=== PATIENT | male | born 1950 | race American Indian/Alaskan Native ===

== ENCOUNTER 2019-06-16 12:54 | Inpatient (IN) | payer MEDICARE, OTHER ==
[2019-06-16] MEDS ORDERED: dilTIAZem 25 MG/5 ML INJ IV ONE (13:11)
[2019-06-16] MEDS ORDERED: dilTIAZem 25 MG/5 ML INJ ONE (13:13)
[2019-06-16 13:41] LABS: Bilirubin,Urine NEG (Negative); Blood,Urine SM (Negative); Color,Urine Colorless (Yellow); Urobilinogen,Urine < 2.0 mg/dL (<2.0); WBC,Urine < 1.0 /HPF (0.0-6.0)
[2019-06-16] MEDS ORDERED: dilTIAZem/D5W 100 MG/100 ML BAG IV SCH (14:00)
[2019-06-16 14:03] LABS: Basophils % (Auto) 0.3 % (0.0-1.8); Eosinophils # (Auto) 0.1 K/mm3 (0.0-0.4); Eosinophils % (Auto) 1.6 % (0.0-4.3); Hematocrit 43.4 % (35.5-45.6); Hemoglobin 14.7 gm/dl (11.8-15.2); Lymphocytes # (Auto) 1.2 K/mm3 (1.2-5.4); Lymphocytes % (Auto) 18.3 % (13.4-35.0); Mean Corpuscular HGB Conc 34 % (32-34); Mean Corpuscular Volume 92 fl (84-94); Monocytes # (Auto) 0.6 K/mm3 (0.0-0.8); Monocytes % (Auto) 9.5 % (0.0-7.3); Platelet Count 341 K/mm3 (140-440); Red Blood Count 4.73 M/mm3 (3.65-5.03); Red Cell Distribution Width 14.1 % (13.2-15.2)
[2019-06-16 14:12] LABS: INR 0.94 (0.87-1.13); Partial Thromboplastin Time 24.2 Sec. (24.2-36.6)
[2019-06-16 14:19] LABS: Amphetamine Screen,Urine PRESUMPTIVE NEGATIVE; Benzodiazepines Screen,Urine PRESUMPTIVE NEGATIVE; Cannabinoid Screen,Urine PRESUMPTIVE NEGATIVE; Cocaine Screen,Urine PRESUMPTIVE NEGATIVE; Methadone Screen,Urine PRESUMPTIVE NEGATIVE; Opiate Screen,Urine PRESUMPTIVE NEGATIVE
[2019-06-16 14:21] LABS: BUN/Creatinine Ratio 9; Blood Urea Nitrogen 9 mg/dL (9-20); Calcium 9.2 mg/dL (8.4-10.2); Hemolysis Index 20
[2019-06-16 14:26] LABS: Alanine Aminotransferase 29 units/L (7-56); Albumin 4.3 g/dL (3.9-5)
[2019-06-16 14:30] LABS: Bilirubin,Direct < 0.2 mg/dL (0-0.2)
[2019-06-16 14:34] LABS: Free T4 (Free Thyroxine) 1.21 ng/dL (0.76-1.46)
--- NOTE | 2019-06-16 14:34 | XRay Report ---
CHEST 1 VIEW INDICATION / CLINICAL INFORMATION: TAMEKA. COMPARISON: None FINDINGS: SUPPORT DEVICES: None. HEART / MEDIASTINUM: No significant abnormality. LUNGS / PLEURA: No significant pulmonary or pleural abnormality. No pneumothorax. ADDITIONAL FINDINGS: No significant additional findings. IMPRESSION: No acute pulmonary or pleural abnormality. Signer Name: Edison Smith MD FACR Signed: 06/16/2019 2:30 PM Workstation Name: [id number]
--- NOTE | 2019-06-16 15:23 | Emergency Department Report ---
ED Chest Pain HPI - General Chief Complaint: Chest Pain Stated Complaint: CHEST PAIN Time Seen by Provider: 06/16/19 12:56 Source: patient, EMS Mode of arrival: Stretcher Limitations: No Limitations - History of Present Illness Initial Comments: 68-year-old man with the acute onset of a rapid and irregular heart rhythm. The patient states that he does have a history of atrial fibrillation. Apparently it has been paroxysmal. He currently takes aspirin but not anticoagulation. He has a history of PCI. He states that the onset of the rapid heart rhythm he developed anterior nonradiating chest pressure. He did complain of some shortness of breath which was not severe. He denied sweating nausea or vomiting. MD Complaint: chest pain -: Gradual Onset: during rest Pain Location: substernal Severity: moderate Severity scale (0 -10): 0 Quality: heaviness Consistency: constant Improves With: nothing Worsens With: nothing Context: other (atrial fibrillation with RVR) re: dyspnea Other Symptoms: denies: cough, fever, syncope - Related Data Previous Rx's Medication Instructions Recorded Last Taken Type Aspirin EC 325 mg PO QDAY #30 tablet 04/21/14 Unknown Rx Clopidogrel [Plavix] 75 mg PO QDAY #30 tablet 04/21/14 Unknown Rx Lisinopril [Zestril TAB] 20 mg PO QDAY #30 tablet 04/21/14 Unknown Rx Metoprolol [Lopressor TAB] 50 mg PO BID #60 tablet 04/21/14 Unknown Rx Rosuvastatin (Nf) [Crestor] 10 mg PO QHS #30 tablet 04/21/14 Unknown Rx Allergies Allergy/AdvReac Type Severity Reaction Status Date / Time No Known Allergies Allergy Verified 04/16/14 12:26 Heart Score - HEART Score History: Moderately suspicious EKG: Non-specific Age: > 65 Risk factors: > 3 risk factors or hx of atherosclerotic disease Troponin: < normal limit HEART Score: 6 - Critical Actions Critical Actions: 4-6 pts:12-16.6% risk of adverse cardiac event. Should be admitted ED Review of Systems ROS: Stated complaint: CHEST PAIN Other details as noted in HPI Constitutional: denies: chills, fever Eyes: denies: eye pain, eye discharge, vision change ENT: denies: ear pain, throat pain Respiratory: shortness of breath. denies: cough, wheezing Cardiovascular: chest pain, palpitations Endocrine: no symptoms reported Gastrointestinal: denies: abdominal pain, nausea, diarrhea Genitourinary: denies: urgency, dysuria Musculoskeletal: denies: back pain, joint swelling, arthralgia Skin: denies: rash, lesions Neurological: denies: headache, weakness, paresthesias Psychiatric: denies: anxiety, depression Hematological/Lymphatic: denies: easy bleeding, easy bruising ED Past Medical Hx - Past Medical History Hx Hypertension: Yes Hx Congestive Heart Failure: No Hx Diabetes: No Hx Asthma: Yes Hx COPD: No Additional medical history: Atrial Fibrillation - Surgical History Additional Surgical History: cardia stents - Social History Smoking Status: Never Smoker Substance Use Type: Alcohol - Medications Home Medications: Home Medications Medication Instructions Recorded Confirmed Last Taken Type Aspirin EC 325 mg PO QDAY #30 tablet 04/21/14 Unknown Rx Clopidogrel [Plavix] 75 mg PO QDAY #30 tablet 04/21/14 Unknown Rx Lisinopril [Zestril TAB] 20 mg PO QDAY #30 tablet 04/21/14 Unknown Rx Metoprolol [Lopressor TAB] 50 mg PO BID #60 tablet 04/21/14 Unknown Rx Rosuvastatin (Nf) [Crestor] 10 mg PO QHS #30 tablet 04/21/14 Unknown Rx ED Physical Exam - General Limitations: No Limitations General appearance: alert, in no apparent distress - Head Head exam: Present: atraumatic, normocephalic - Eye Eye exam: Present: normal appearance. Absent: scleral icterus - ENT ENT exam: Present: mucous membranes moist - Neck Neck exam: Present: normal inspection - Respiratory Respiratory exam: Present: normal lung sounds bilaterally. Absent: respiratory distress - Cardiovascular Cardiovascular Exam: Present: tachycardia, irregular rhythm. Absent: systolic murmur, diastolic murmur, rubs, gallop - GI/Abdominal GI/Abdominal exam: Present: soft, normal bowel sounds. Absent: distended, tenderness, guarding, rebound - Rectal Rectal exam: Present: deferred - Extremities Exam Extremities exam: Present: normal inspection, normal capillary refill. Absent: pedal edema, joint swelling, calf tenderness - Back Exam Back exam: Present: normal inspection - Neurological Exam Neurological exam: Present: alert, oriented X3, CN II-XII intact. Absent: motor sensory deficit - Psychiatric Psychiatric exam: Present: normal affect, normal mood - Skin Skin exam: Present: warm, dry, intact, normal color. Absent: rash ED Course Vital Signs 06/16/19 06/16/19 06/16/19 13:08 13:11 13:20 Temperature 98.4 F Pulse Rate 168 H 108 H 139 H Respiratory 20 Rate Blood Pressure 135/85 139/85 Blood Pressure [Right] O2 Sat by Pulse 95 Oximetry 06/16/19 06/16/19 06/16/19 13:39 13:43 13:44 Temperature Pulse Rate 92 H 93 H Respiratory 17 14 19 Rate Blood Pressure Blood Pressure 131/78 [Right] O2 Sat by Pulse 95 96 96 Oximetry 06/16/19 06/16/19 06/16/19 13:45 14:00 14:15 Temperature Pulse Rate 97 H 89 84 Respiratory 19 17 16 Rate Blood Pressure 131/78 124/76 121/74 Blood Pressure [Right] O2 Sat by Pulse 96 96 Oximetry 06/16/19 06/16/19 06/16/19 14:30 14:45 15:00 Temperature Pulse Rate 81 84 78 Respiratory 20 18 21 Rate Blood Pressure 121/70 137/77 133/83 Blood Pressure [Right] O2 Sat by Pulse 96 96 95 Oximetry - Reevaluation(s) Reevaluation #1: Patient was given diltiazem 10 mg IV. He spontaneously cardioverted not long thereafter. A diltiazem drip was not assessed. He was referred to the hospital service for further care and management. 06/16/19 15:22 Reevaluation #2: PE EKG after cardioversion shows normal sinus rhythm, evidence of old inferior dizziness. Nonspecific ST-T wave changes 06/16/19 15:24 SHANNA score - Shanna Score Age > 65: (1) Yes Aspirin use within the Past 7 Days: (1) Yes 3 or more CAD Risk Factors: (1) Yes 2 or more Angina events in past 24 hrs: (0) No Known CAD with more than 50% Stenosis: (1) Yes Elevated Cardiac Markers: (0) No ST Deviation Greater than 0.5mm: (0) No SHANNA Score: 4 ED Medical Decision Making - Lab Data Result diagrams: 06/16/19 13:27 06/16/19 13:27 Laboratory Results - last 24 hr 06/16/19 06/16/19 06/16/19 13:26 13:26 13:27 WBC 6.7 RBC 4.73 Hgb 14.7 Hct 43.4 MCV 92 MCH 31 MCHC 34 RDW 14.1 Plt Count 341 Lymph % (Auto) 18.3 [place] % (Auto) 9.5 H Eos % (Auto) 1.6 Baso % (Auto) 0.3 Lymph # 1.2 [place] # 0.6 Eos # 0.1 Baso # 0.0 Seg Neutrophils % 70.3 H Seg Neutrophils # 4.7 PT INR APTT Sodium Potassium Chloride Carbon Dioxide Anion Gap BUN Creatinine Estimated GFR BUN/Creatinine Ratio Glucose Calcium Total Bilirubin Direct Bilirubin AST ALT Alkaline Phosphatase Troponin T NT-Pro-B Natriuret Pep Total Protein Albumin Albumin/Globulin Ratio TSH Free T4 Urine Color Colorless Urine Turbidity Clear Urine pH 7.0 Ur Specific [place] 1.002 L Urine Protein 30 mg/dl Urine Glucose (UA) Neg Urine Ketones Neg Urine Blood Sm Urine Nitrite Neg Urine Bilirubin Neg Urine Urobilinogen < 2.0 Ur Leukocyte Esterase Neg Urine WBC (Auto) < 1.0 Urine RBC (Auto) 2.0 Urine Opiates Screen Presumptive negative Urine Methadone Screen Presumptive negative Ur Barbiturates Screen Presumptive negative Ur Phencyclidine Scrn Presumptive negative Ur Amphetamines Screen Presumptive negative U Benzodiazepines Scrn Presumptive negative Urine Cocaine Screen Presumptive negative U Marijuana (THC) Screen Presumptive negative Drugs of Abuse Note Disclamer 06/16/19 06/16/19 06/16/19 13:27 13:27 13:27 WBC RBC Hgb Hct MCV MCH MCHC RDW Plt Count Lymph % (Auto) [place] % (Auto) Eos % (Auto) Baso % (Auto) Lymph # [place] # Eos # Baso # Seg Neutrophils % Seg Neutrophils # PT 12.7 INR 0.94 APTT 24.2 Sodium 139 Potassium 3.6 Chloride 101.2 Carbon Dioxide 21 L Anion Gap 20 BUN 9 Creatinine 1.0 Estimated GFR > 60 BUN/Creatinine Ratio 9 Glucose 127 H Calcium 9.2 Total Bilirubin 0.30 Direct Bilirubin < 0.2 AST 26 ALT 29 Alkaline Phosphatase 70 Troponin T < 0.010 NT-Pro-B Natriuret Pep 19.20 Total Protein 8.0 Albumin 4.3 Albumin/Globulin Ratio 1.2 TSH Free T4 Urine Color Urine Turbidity Urine pH Ur Specific [place] Urine Protein Urine Glucose (UA) Urine Ketones Urine Blood Urine Nitrite Urine Bilirubin Urine Urobilinogen Ur Leukocyte Esterase Urine WBC (Auto) Urine RBC (Auto) Urine Opiates Screen Urine Methadone Screen Ur Barbiturates Screen Ur Phencyclidine Scrn Ur Amphetamines Screen U Benzodiazepines Scrn Urine Cocaine Screen U Marijuana (THC) Screen Drugs of Abuse Note 06/16/19 13:27 WBC RBC Hgb Hct MCV MCH MCHC RDW Plt Count Lymph % (Auto) [place] % (Auto) Eos % (Auto) Baso % (Auto) Lymph # [place] # Eos # Baso # Seg Neutrophils % Seg Neutrophils # PT INR APTT Sodium Potassium Chloride Carbon Dioxide Anion Gap BUN Creatinine Estimated GFR BUN/Creatinine Ratio Glucose Calcium Total Bilirubin Direct Bilirubin AST ALT Alkaline Phosphatase Troponin T NT-Pro-B Natriuret Pep Total Protein Albumin Albumin/Globulin Ratio TSH 1.300 Free T4 1.21 Urine Color Urine Turbidity Urine pH Ur Specific [place] Urine Protein Urine Glucose (UA) Urine Ketones Urine Blood Urine Nitrite Urine Bilirubin Urine Urobilinogen Ur Leukocyte Esterase Urine WBC (Auto) Urine RBC (Auto) Urine Opiates Screen Urine Methadone Screen Ur Barbiturates Screen Ur Phencyclidine Scrn Ur Amphetamines Screen U Benzodiazepines Scrn Urine Cocaine Screen U Marijuana (THC) Screen Drugs of Abuse Note - EKG Data -: EKG Interpreted by Me Rate: tachycardia (atrial fibrillation with RVR) - Radiology Data Radiology results: image reviewed (chest x-ray no acute process) Critical care attestation.: If time is entered above; I have spent that time in minutes in the direct care of this critically ill patient, excluding procedure time. ED Disposition Clinical Impression: Atrial fibrillation with RVR Chest pain Qualifiers: Chest pain type: unspecified Qualified Code(s): R07.9 - Chest pain, unspecified Disposition: 09 OP ADMIT IP TO THIS HOSP Is pt being admited?: Yes Does the pt Need Aspirin: Yes Condition: Stable Instructions: Chest Pain (ED) Time of Disposition: 15:26
[2019-06-16] MEDS ORDERED: ASPIRIN 325 MG TAB PO ONE (15:28)
--- NOTE | 2019-06-16 15:52 | History and Physical Report ---
History of Present Illness Chief complaint: My heart was pounding in my chest History of present illness: 68 YO Male with Atrial Fib currently taking Aspirin, HTN, HLD, CAD on DAPT S/P PCI, Mild Intermittent Asthma presents to ED for evaluation. Pt states that he experienced a sudden onset of chest palpitations which was followed by chest discomfort approximately 45 minutes prior to presentation to the hospital. EMS notified, and upon arrival the patient was found to be in distress. Pt transported to [facility]. Pt seen and evaluated in ED and found to have Atrial Fib with RVR and initiated on a Cardizem drip with rate control. Pt symptoms resolved with therapy. Pt transitioned to oral cardizem. Pt placed in observat ion status and admitted to [facility] with remote telemetry. Cardiology team consulted in ED. Pt denies fever, chills, CP, NVD, Shortness of Breath, unilateral leg swelling, calf pain, prolonged travel/immobility, hemoptysis, Individual/Family history of DVT/PE/Bleeding/Blood Clotting Disorders. Past History Past Medical History: atrial fib, hypertension, hyperlipidemia Past Surgical History: Other (CArdiac stent) Social history: . denies: smoking, alcohol abuse, prescription drug abuse Family history: hypertension Medications and Allergies Allergies Allergy/AdvReac Type Severity Reaction Status Date / Time No Known Allergies Allergy Verified 04/16/14 12:26 Home Medications Medication Instructions Recorded Confirmed Last Taken Type Aspirin EC 325 mg PO QDAY #30 tablet 04/21/14 Unknown Rx Clopidogrel [Plavix] 75 mg PO QDAY #30 tablet 04/21/14 Unknown Rx Lisinopril [Zestril TAB] 20 mg PO QDAY #30 tablet 04/21/14 Unknown Rx Metoprolol [Lopressor TAB] 50 mg PO BID #60 tablet 04/21/14 Unknown Rx Rosuvastatin (Nf) [Crestor] 10 mg PO QHS #30 tablet 04/21/14 Unknown Rx Active Meds: Active Medications Diltiazem HCl (Cardizem/D5w 100mg/100ml) 100 mg in 100 mls @ 5 mls/hr IV TITR DIANE; Protocol Review of Systems Constitutional: no weight loss, no weight gain, no fever, no chills Ears, nose, mouth and throat: no ear pain, no ear discharge, no tinnitis, no decreased hearing, no nose pain Cardiovascular: palpitations Respiratory: no cough, no cough with sputum, no excessive sputum, no hemoptysis, no shortness of breath Gastrointestinal: no nausea, no vomiting, no diarrhea, no constipation, no change in bowel habits Genitourinary Male: no hematuria, no flank pain, no discharge, no urinary frequency, no urinary hesitancy Rectal: no pain, no incontinence, no bleeding Musculoskeletal: no neck pain, no arm numbness/tingling, no low back pain, no shooting leg pain, no leg numbness/tingling Integumentary: no rash, no pruritis, no redness, no sores, no jaundice Neurological: no transient paralysis, no paralysis, no parathesias, no numbness, no tingling, no syncope, no tremors Psychiatric: no anxiety, no memory loss, no change in sleep habits, no sleep disturbances, no insomnia, no suicidal ideation Endocrine: no cold intolerance, no heat intolerance, no polyphagia, no excessive thirst, no polyuria, no weight change Hematologic/Lymphatic: no easy bruising, no easy bleeding, no lymphadenopathy Allergic/Immunologic: no urticaria, no allergic rhinitis, no persistent infections, no anaphylaxis, no angioedema Exam - Constitutional Vitals: Temp Pulse Resp BP Pulse Ox 98.4 F 72 15 135/80 95 06/16/19 13:08 06/16/19 15:30 06/16/19 15:30 06/16/19 15:30 06/16/19 15:30 General appearance: Present: mild distress - EENT Eyes: Present: PERRL ENT: hearing intact, clear oral mucosa - Neck Neck: Present: supple, normal ROM - Respiratory Respiratory effort: normal Respiratory: bilateral: CTA - Cardiovascular Heart Sounds: Present: S1 & S2. Absent: rub, click - Extremities Extremities: pulses symmetrical, No edema Peripheral Pulses: within normal limits - Abdominal General gastrointestinal: Present: soft, non-tender, non-distended, normal bowel sounds Male genitourinary: Present: normal - Integumentary Integumentary: Present: clear, warm, dry - Musculoskeletal Musculoskeletal: gait normal, strength equal bilaterally - Psychiatric Psychiatric: appropriate mood/affect, intact judgment & insight - Neurologic Neurologic: CNII-XII intact, moves all extremities Results - Labs CBC & Chem 7: 06/16/19 13:27 06/16/19 13:27 Labs: Abnormal lab results 06/16/19 06/16/19 06/16/19 Range/Units 13:26 13:27 13:27 [place] % (Auto) 9.5 H (0.0-7.3) % Seg Neutrophils % 70.3 H (40.0-70.0) % Carbon Dioxide 21 L (22-30) mmol/L Glucose 127 H (75-100) mg/dL Ur Specific [place] 1.002 L (1.003-1.030) Assessment and Plan - Patient Problems (1) Atrial fibrillation with RVR Current Visit: No Status: Acute Plan to address problem: IV cardizem, PO Cardizem, thyroid panel, remote telemetry. (2) HTN (hypertension) Current Visit: Yes Status: Acute Qualifiers: Hypertension type: essential hypertension Qualified Code(s): I10 - Essential (primary) hypertension Plan to address problem: monitor bp q shift, (3) CAD (coronary artery disease) Current Visit: Yes Status: Acute Qualifiers: Associated angina: without angina Plan to address problem: lipid panel, statin therapy, low fat/low cholesterol diet, DAPT (4) HLD (hyperlipidemia) Current Visit: Yes Status: Acute Qualifiers: Hyperlipidemia type: unspecified Qualified Code(s): E78.5 - Hyperlipidemia, unspecified Plan to address problem: Statin therapy, supportive care. (5) DVT prophylaxis Current Visit: Yes Status: Acute Plan to address problem: SCD to BLE while in bed,
[2019-06-16] MEDS ORDERED: ACETAMINOPHEN 325 MG TAB PO PRN (15:53)
[2019-06-16] MEDS ORDERED: ONDANSETRON 4 MG/2 ML INJ IV PRN (15:53)
[2019-06-16] MEDS ORDERED: ALBUTEROL 2.5 MG/3 ML NEBU IH PRN (15:53)
[2019-06-16] MEDS: dilTIAZem 30 MG TAB PO SCH (19:43)
[2019-06-16] MEDS: METOPROLOL TARTRATE 50 MG TAB PO SCH (21:20)
[2019-06-16] MEDS ORDERED: ROSUVASTATIN 10 MG PO SCH (22:00)
[2019-06-17] MEDS: dilTIAZem 30 MG TAB PO SCH ×3 (00:14→13:18)
[2019-06-17 05:48] LABS: BUN/Creatinine Ratio 9; Blood Urea Nitrogen 9 mg/dL (9-20)
[2019-06-17 05:49] LABS: Calcium 8.9 mg/dL (8.4-10.2); Hemolysis Index 18
[2019-06-17] MEDS ORDERED: CLOPIDOGREL 75 MG TAB PO SCH (10:00)
[2019-06-17] MEDS ORDERED: ASPIRIN EC 325 MG TAB PO SCH (10:00)
[2019-06-17] MEDS: METOPROLOL TARTRATE 50 MG TAB PO SCH (10:15)
[2019-06-17] MEDS: LISINOPRIL 20 MG TAB PO SCH (10:15)
--- NOTE | 2019-06-17 13:33 | Consultation ---
History of Present Illness Consult date: 06/17/19 Consult reason: atrial fibrillation History of present illness: This is a 68 year old male who presented with palpitations, found to be in rapid atrial fibrillation. He was treated with intravenous Diltiazem in the emergency department and he has since reverted to a stable sinus rhythm. TSH is normal. A cardiac consultation has been requested for further management of paroxysmal atrial fibrillation. Patient gives a history of paroxysmal [facility] He is not on oral anticoagulation for unclear reasons. 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 Ejection fraction 70%. At that time, the patient was recommended DAPT with plavix and aspirin which he continues to take. Past History Past Medical History: acute NE, atrial fib, CAD, hypertension, hyperlipidemia Social history: . denies: smoking, alcohol abuse, prescription drug abuse Family history: hypertension Medications and Allergies Allergies Allergy/AdvReac Type Severity Reaction Status Date / Time No Known Allergies Allergy Verified 04/16/14 12:26 Home Medications Medication Instructions Recorded Confirmed Last Taken Type Aspirin EC 325 mg PO QDAY #30 tablet 04/21/14 06/16/19 Unknown Rx Clopidogrel [Plavix] 75 mg PO QDAY #30 tablet 04/21/14 06/16/19 Unknown Rx Lisinopril [Zestril TAB] 20 mg PO QDAY #30 tablet 04/21/14 06/16/19 Unknown Rx Metoprolol [Lopressor TAB] 50 mg PO BID #60 tablet 04/21/14 06/16/19 Unknown Rx Rosuvastatin (Nf) [Crestor] 10 mg PO QHS #30 tablet 04/21/14 06/16/19 Unknown Rx Augmentin 875-125 Tablet 1 tab PO Q12H 06/17/19 06/17/19 06/16/19 History Active Meds: Active Medications Acetaminophen (Tylenol) 650 mg PO Q4H PRN PRN Reason: Pain MILD(1-3)/Fever >100.5/RUIZ Albuterol (Proventil) 2.5 mg IH Q4HRT PRN PRN Reason: Shortness Of Breath Aspirin (Ecotrin) 325 mg PO QDAY [facility] Last Admin: 06/17/19 10:16 Dose: 325 mg Documented by: Atorvastatin Calcium (Lipitor) 20 mg PO QHS [facility] Last Admin: 06/16/19 21:21 Dose: 20 mg Documented by: Clopidogrel Bisulfate (Plavix) 75 mg PO QDAY [facility] Last Admin: 06/17/19 10:16 Dose: 75 mg Documented by: Diltiazem HCl (Cardizem) 30 mg PO Q6HR [facility] Last Admin: 06/17/19 13:18 Dose: 30 mg Documented by: Lisinopril (Zestril) 20 mg PO QDAY [facility] Last Admin: 06/17/19 10:15 Dose: 20 mg Documented by: Metoprolol Tartrate (Metoprolol) 50 mg PO BID [facility] Last Admin: 06/17/19 10:15 Dose: 50 mg Documented by: Ondansetron HCl (Zofran) 4 mg IV Q8H PRN PRN Reason: Nausea And Vomiting Sodium Chloride (Sodium Chloride Flush Syringe 10 Ml) 10 ml IV BID [facility] Last Admin: 06/17/19 10:23 Dose: 10 ml Documented by: Sodium Chloride (Sodium Chloride Flush Syringe 10 Ml) 10 ml IV PRN PRN PRN Reason: LINE FLUSH Physical Examination Vital Signs Temp Pulse Resp BP Pulse Ox 98.4 F 168 H 20 135/85 95 06/16/19 13:08 06/16/19 13:08 06/16/19 13:08 06/16/19 13:08 06/16/19 13:08 General appearance: no acute distress HEENT: Positive: PERRL Neck: Positive: trachea midline Cardiac: Positive: Reg Rate and Rhythm Lungs: Positive: Decreased Breath Sounds Neuro: Positive: Grossly Intact Results 06/16/19 13:27 06/17/19 04:43 Cardiac Enzymes 06/16/19 Range/Units 13:27 AST 26 (5-40) units/L Coagulation 06/16/19 Range/Units 13:27 PT 12.7 (12.2-14.9) Sec. INR 0.94 (0.87-1.13) APTT 24.2 (24.2-36.6) Sec. CBC 06/16/19 Range/Units 13:27 WBC 6.7 (4.5-11.0) K/mm3 RBC 4.73 (3.65-5.03) M/mm3 Hgb 14.7 (11.8-15.2) gm/dl Hct 43.4 (35.5-45.6) % Plt Count 341 (140-440) K/mm3 Lymph # 1.2 (1.2-5.4) K/mm3 [place] # 0.6 (0.0-0.8) K/mm3 Eos # 0.1 (0.0-0.4) K/mm3 Baso # 0.0 (0.0-0.1) K/mm3 Comprehensive Metabolic Panel 06/16/19 06/16/19 06/17/19 Range/Units 13:27 13:27 04:43 Sodium 139 138 (137-145) mmol/L Potassium 3.6 3.7 (3.6-5.0) mmol/L Chloride 101.2 101.3 (98-107) mmol/L Carbon Dioxide 21 L 22 (22-30) mmol/L BUN 9 9 (9-20) mg/dL Creatinine 1.0 1.0 (0.8-1.5) mg/dL Glucose 127 H 109 H (75-100) mg/dL Calcium 9.2 8.9 (8.4-10.2) mg/dL Direct Bilirubin < 0.2 (0-0.2) mg/dL AST 26 (5-40) units/L ALT 29 (7-56) units/L Alkaline Phosphatase 70 (35-129) units/L Total Protein 8.0 (6.3-8.2) g/dL Albumin 4.3 (3.9-5) g/dL Assessment and Plan Paroxysmal atrial fibrillation on diltiazem for suppression Hx of NE/CAD Hypertension Oral anticoagulation therapy for atrial fibrillation prophylaxis. Echocardiogram for LVEF assessment. Continue medical management for coronary artery disease.
--- NOTE | 2019-06-17 15:01 | Progress Note ---
Assessment and Plan Assessment and plan: Atrial fibrillation with RVR On Cardizem, Eliquis Cardiology following remote telemetry. Hypertension monitor bp q shift, Coronary artery disease Lipid panel, statin therapy, low fat/low cholesterol diet, DAPT Hyperlipidemia Statin therapy, supportive care. DVT prophylaxis SCD to BLE while in bed, History Interval history: Patient presented with palpitations, diagnoses with rapid afib No more palpitations Hospitalist Physical - Physical exam Narrative exam: Gen: Not in acute distress, lying in bed, HEENT: Normocephalic, atraumatic Neck: supple, no JVD Heart: S1 and S2 irreg, no murmurs, rubs or gallop Lungs: clear to auscultation bilaterally, no crackles Abd: soft, NT, non distended, normal BS Ext: No edema, no clubbing, no cyanosis Neuro:Awake,alert, oriented X 3, moves all ext - Constitutional Vitals: Temp Pulse Resp BP Pulse Ox 98.2 F 65 18 130/73 100 06/17/19 13:20 06/17/19 13:16 06/17/19 13:20 06/17/19 13:18 06/17/19 13:16 General appearance: Present: no acute distress Results - Labs CBC & Chem 7: 06/16/19 13:27 06/17/19 04:43 Labs: Laboratory Last Values WBC 6.7 K/mm3 (4.5-11.0) 06/16/19 13:27 RBC 4.73 M/mm3 (3.65-5.03) 06/16/19 13:27 Hgb 14.7 gm/dl (11.8-15.2) 06/16/19 13:27 Hct 43.4 % (35.5-45.6) 06/16/19 13:27 MCV 92 fl (84-94) 06/16/19 13:27 MCH 31 pg (28-32) 06/16/19 13:27 MCHC 34 % (32-34) 06/16/19 13:27 RDW 14.1 % (13.2-15.2) 06/16/19 13:27 Plt Count 341 K/mm3 (140-440) 06/16/19 13:27 Lymph % (Auto) 18.3 % (13.4-35.0) 06/16/19 13:27 [place] % (Auto) 9.5 % (0.0-7.3) H 06/16/19 13:27 Eos % (Auto) 1.6 % (0.0-4.3) 06/16/19 13:27 Baso % (Auto) 0.3 % (0.0-1.8) 06/16/19 13:27 Lymph # 1.2 K/mm3 (1.2-5.4) 06/16/19 13:27 [place] # 0.6 K/mm3 (0.0-0.8) 06/16/19 13:27 Eos # 0.1 K/mm3 (0.0-0.4) 06/16/19 13:27 Baso # 0.0 K/mm3 (0.0-0.1) 06/16/19 13:27 Seg Neutrophils % 70.3 % (40.0-70.0) H 06/16/19 13:27 Seg Neutrophils # 4.7 K/mm3 (1.8-7.7) 06/16/19 13:27 PT 12.7 Sec. (12.2-14.9) 06/16/19 13:27 INR 0.94 (0.87-1.13) 06/16/19 13:27 APTT 24.2 Sec. (24.2-36.6) 06/16/19 13:27 Sodium 138 mmol/L (137-145) 06/17/19 04:43 Potassium 3.7 mmol/L (3.6-5.0) 06/17/19 04:43 Chloride 101.3 mmol/L (98-107) 06/17/19 04:43 Carbon Dioxide 22 mmol/L (22-30) 06/17/19 04:43 Anion Gap 18 mmol/L 06/17/19 04:43 BUN 9 mg/dL (9-20) 06/17/19 04:43 Creatinine 1.0 mg/dL (0.8-1.5) 06/17/19 04:43 Estimated GFR > 60 ml/min 06/17/19 04:43 BUN/Creatinine Ratio 9 % 06/17/19 04:43 Glucose 109 mg/dL (75-100) H 06/17/19 04:43 Calcium 8.9 mg/dL (8.4-10.2) 06/17/19 04:43 Total Bilirubin 0.30 mg/dL (0.1-1.2) 06/16/19 13:27 Direct Bilirubin < 0.2 mg/dL (0-0.2) 06/16/19 13:27 AST 26 units/L (5-40) 06/16/19 13:27 ALT 29 units/L (7-56) 06/16/19 13:27 Alkaline Phosphatase 70 units/L (35-129) 06/16/19 13:27 Troponin T < 0.010 ng/mL (0.00-0.029) 06/16/19 21:43 NT-Pro-B Natriuret Pep 19.20 pg/mL (0-900) 06/16/19 13:27 Total Protein 8.0 g/dL (6.3-8.2) 06/16/19 13:27 Albumin 4.3 g/dL (3.9-5) 06/16/19 13:27 Albumin/Globulin Ratio 1.2 % 06/16/19 13:27 TSH 1.300 mlU/mL (0.270-4.200) 06/16/19 13:27 Free T4 1.21 ng/dL (0.76-1.46) 06/16/19 13:27 Urine Color Colorless (Yellow) 06/16/19 13:26 Urine Turbidity Clear (Clear) 06/16/19 13:26 Urine pH 7.0 (5.0-7.0) 06/16/19 13:26 Ur Specific [place] 1.002 (1.003-1.030) L 06/16/19 13:26 Urine Protein 30 mg/dl mg/dL (Negative) 06/16/19 13:26 Urine Glucose (UA) Neg mg/dL (Negative) 06/16/19 13:26 Urine Ketones Neg mg/dL (Negative) 06/16/19 13:26 Urine Blood Sm (Negative) 06/16/19 13:26 Urine Nitrite Neg (Negative) 06/16/19 13:26 Urine Bilirubin Neg (Negative) 06/16/19 13:26 Urine Urobilinogen < 2.0 mg/dL (<2.0) 06/16/19 13:26 Ur Leukocyte Esterase Neg (Negative) 06/16/19 13:26 Urine WBC (Auto) < 1.0 /HPF (0.0-6.0) 06/16/19 13:26 Urine RBC (Auto) 2.0 /HPF (0.0-6.0) 06/16/19 13:26 Urine Opiates Screen Presumptive negative 06/16/19 13:26 Urine Methadone Screen Presumptive negative 06/16/19 13:26 Ur Barbiturates Screen Presumptive negative 06/16/19 13:26 Ur Phencyclidine Scrn Presumptive negative 06/16/19 13:26 Ur Amphetamines Screen Presumptive negative 06/16/19 13:26 U Benzodiazepines Scrn Presumptive negative 06/16/19 13:26 Urine Cocaine Screen Presumptive negative 06/16/19 13:26 U Marijuana (THC) Screen Presumptive negative 06/16/19 13:26 Drugs of Abuse Note Disclamer 06/16/19 13:26 Active Medications - Current Medications Current Medications: Generic Name Dose Route Start Last Admin Trade Name Freq PRN Reason Stop Dose Admin Acetaminophen 650 mg 06/16/19 15:53 Tylenol PO Q4H PRN Pain MILD(1-3)/Fever >100.5/RUIZ Albuterol 2.5 mg 06/16/19 15:53 Proventil IH Q4HRT PRN Shortness Of Breath Apixaban 5 mg 06/17/19 22:00 Eliquis PO Q12HR [facility] Protocol Aspirin 81 mg 06/18/19 10:00 Aspirin PO QDAY [facility] Atorvastatin Calcium 20 mg 06/16/19 22:00 06/16/19 21:21 Lipitor PO 20 mg QHS DIANE Administration Diltiazem HCl 180 mg 06/18/19 10:00 Cardizem Cd PO QDAY [facility] Lisinopril 20 mg 06/17/19 10:00 06/17/19 10:15 Zestril PO 20 mg QDAY DIANE Administration Metoprolol Tartrate 25 mg 06/17/19 22:00 Metoprolol PO BID [facility] Ondansetron HCl 4 mg 06/16/19 15:53 Zofran IV Q8H PRN Nausea And Vomiting Sodium Chloride 10 ml 06/16/19 22:00 06/17/19 10:23 Sodium Chloride Flush Syringe 10 Ml IV 10 ml BID DIANE Administration Sodium Chloride 10 ml 06/16/19 15:53 Sodium Chloride Flush Syringe 10 Ml IV PRN PRN LINE FLUSH
[2019-06-17] MEDS: METOPROLOL TARTRATE 25 MG TAB PO SCH (21:46)
[2019-06-17] MEDS: APIXABAN 5 MG TAB PO SCH (21:47)
[2019-06-18] MEDS ORDERED: REGADENOSON 0.4 MG/5 ML INJ IV ONE (07:33)
[2019-06-18] MEDS ORDERED: ASPIRIN 325 MG TAB PO SCH (10:00)
[2019-06-18] MEDS ORDERED: dilTIAZem CD 180 MG CAP PO SCH (10:00)
--- NOTE | 2019-06-18 11:13 | Progress Note ---
Assessment and Plan Paroxysmal atrial fibrillation on diltiazem for suppression Hx of ND/CAD s/p PCI Hypertension Rate control strategy with AV mayela tyrone for atrial fibrillation Oral anticoagulation with eliquis therapy for atrial fibrillation prophylaxis Echocardiogram shows normal LV function with EF 50-55% Continue medical management for coronary artery disease Plan for stress test today Subjective Date of service: 06/18/19 Interval history: No acute events. Resting comfortably. No chest pain or SOB. Objective Vital Signs Temp Pulse Resp Resp BP Pulse Ox 06/18/19 07:30 98.0 F 72 20 126/75 98 06/18/19 06:07 59 L 06/18/19 04:00 20 06/18/19 02:08 98.3 F 66 18 126/82 99 06/18/19 01:01 68 16 96 06/17/19 22:00 98 06/17/19 21:46 70 136/69 06/17/19 19:21 97.8 F 70 18 136/69 97 06/17/19 13:20 98.2 F 18 06/17/19 13:18 130/73 06/17/19 13:16 65 130/73 100 - Physical Examination HEENT: Positive: PERRL Neck: Positive: trachea midline Neuro: Positive: Grossly Intact
[2019-06-18 14:29] VITALS: BP 114/62
[2019-06-18] MEDS: APIXABAN 5 MG TAB PO SCH (14:31)
[2019-06-18] MEDS: METOPROLOL TARTRATE 25 MG TAB PO SCH (14:40)
[2019-06-18] MEDS: LISINOPRIL 20 MG TAB PO SCH (14:40)
--- NOTE | 2019-06-18 15:23 | Discharge Summary ---
Providers - Providers Date of Admission: 06/18/19 08:12 Date of discharge: 06/18/19 Attending physician: ISABELLA WOLFE 06/16/19 18:58 Consult to Physician [CONS] Routine Comment: Consulting Provider: DWAIN ALVARADO Physician Instructions: Reason For Exam: atrial fib Primary care physician: PEAR PICKER Hospitalization Condition: Fair Hospital course: 68 YO Male with Atrial Fib currently taking Aspirin, HTN, HLD, CAD on DAPT S/P PCI, Mild Intermittent Asthma presented to ED for evaluation. Pt states that he experienced a sudden onset of palpitations which was followed by chest discomfort approximately 45 minutes prior to presentation to the hospital. EMS notified, and upon arrival the patient was found to be in distress. He was seen and evaluated in ED and found to have Atrial Fib with RVR and initiated on a Cardizem drip with rate control. Pt symptoms resolved with therapy. Pt transitioned to oral cardizem. Pt placed in observation status. Patient was evaluated by Structural Rigger. Stress test was done which was unremarkable. He was then disharged home. Total time spent on discharge, 33 mins Disposition: DC-01 TO HOME OR SELFCARE - Discharge Diagnoses (1) Atrial fibrillation with RVR Status: Acute (2) CAD (coronary artery disease) Status: Acute Qualifiers: Associated angina: without angina (3) HLD (hyperlipidemia) Status: Acute Qualifiers: Hyperlipidemia type: unspecified Qualified Code(s): E78.5 - Hyperlipidemia, unspecified (4) HTN (hypertension) Status: Acute Qualifiers: Hypertension type: essential hypertension Qualified Code(s): I10 - Essential (primary) hypertension Core Measure Documentation - Palliative Care Palliative Care/ Comfort Measures: Not Applicable - Core Measures Any of the following diagnoses?: none Exam - Constitutional Vitals: Temp Pulse Resp BP Pulse Ox 98.0 F 80 18 114/62 97 06/18/19 13:08 06/18/19 14:31 06/18/19 13:08 06/18/19 14:31 06/18/19 13:08 Plan Activity: no restrictions Diet: low fat, low cholesterol, low salt Plan of Treatment: 1.Follow up with PCP in 1 week. 2.Follow up with Dr. Alvarado, cardiology in 1 week Follow up with: PRIMARY CAREMD [Primary Care Provider] - 7 Days Prescriptions: dilTIAZem CD [Cardizem CD] 180 mg PO QDAY #30 capsule Apixaban [Eliquis] 5 mg PO Q12HR #60 tablet Aspirin EC [Halfprin EC] 81 mg PO QDAY #30 tablet. Metoprolol [Lopressor TAB] 25 mg PO BID #30 tablet Famotidine [Pepcid] 20 mg PO BID #60 tablet
== END 2019-06-18 19:05 | disposition home or self-care (01) | DRG 310 ==
LOC: ED 12:54 → 2B-ACE 15:53 → OBSVTOIN 06-18 08:12
PROVIDERS: ADMIT Internal Medicine; ATTEND Internal Medicine
PROC: 5A09357 Assistance with Respiratory Ventilation, Less than 24 Consecutive Hours, Continuous Positive Airway Pressure (ICD-10-PCS; principal; 2019-06-17)
PROC: 5A09357 Assistance with Respiratory Ventilation, Less than 24 Consecutive Hours, Continuous Positive Airway Pressure (ICD-10-PCS; 2019-06-18)
DX: I48.0 Paroxysmal atrial fibrillation (principal); I10 Essential (primary) hypertension; J45.909 Unspecified asthma, uncomplicated; E78.5 Hyperlipidemia, unspecified; I25.10 Atherosclerotic heart disease of native coronary artery without angina pectoris; Z82.49 Family history of ischemic heart disease and other diseases of the circulatory system; Z79.82 Long term (current) use of aspirin; I25.2 Old myocardial infarction; Z79.01 Long term (current) use of anticoagulants; Z79.899 Other long term (current) drug therapy; Z95.5 Presence of coronary angioplasty implant and graft
CPT/HCPCS: 36415; 71045; 78452; 80048; 80076; 80307; 81001; 83880; 84439; 84443; 84484; 85025; 85610; 85730; 93005; 93010; 93017; 93306; 94660; G0378; A9270-GY; A9502; J2785

== ENCOUNTER 2019-08-11 18:39 | Emergency (ER) | payer MEDICARE ==
--- NOTE | 2019-08-11 21:49 | Emergency Department Report ---
ED Palpitations HPI - General Chief Complaint: Arrhythmia/Palpitations Stated Complaint: FAST HEART RATE/HBP Time Seen by Provider: 08/11/19 20:52 Source: patient, EMS Mode of arrival: Ambulatory Limitations: No Limitations - History of Present Illness Initial Comments: 69-year-old male with history of A. fib presents to ED with palpitations. Patient states he had just finished eating and sat down at the computer when he began to sense that his heart was racing. Patient reports associated mild shortness of breath while he is experiencing the palpitations. Patient states he checked his heart rate and it was in the 170s at that time. He reports he is compliant with his Cardizem. Patient is currently not experiencing any palpitations, chest pain or shortness of breath. MD Complaint: "heart racing" -: This evening Context: occured during rest Arrythmia History: atrial fibrillation Associated Symptoms: shortness of breath - Related Data Previous Rx's Medication Instructions Recorded Last Taken Type Rosuvastatin (Nf) [Crestor] 10 mg PO QHS #30 tablet 04/21/14 Unknown Rx lisinopriL [Zestril TAB] 20 mg PO QDAY #30 tablet 04/21/14 Unknown Rx Apixaban [Eliquis] 5 mg PO Q12HR #60 tablet 06/18/19 Unknown Rx Aspirin EC [Halfprin EC] 81 mg PO QDAY #30 tablet. 06/18/19 Unknown Rx Famotidine [Pepcid] 20 mg PO BID #60 tablet 06/18/19 Unknown Rx Metoprolol [Lopressor TAB] 25 mg PO BID #30 tablet 06/18/19 Unknown Rx dilTIAZem CD [Cardizem CD] 180 mg PO QDAY #30 capsule 06/18/19 Unknown Rx Allergies Allergy/AdvReac Type Severity Reaction Status Date / Time No Known Allergies Allergy Verified 04/16/14 12:26 ED Review of Systems ROS: Stated complaint: FAST HEART RATE/HBP Other details as noted in HPI Comment: All other systems reviewed and negative Constitutional: denies: chills, fever Respiratory: shortness of breath. denies: cough Cardiovascular: palpitations. denies: chest pain Gastrointestinal: denies: nausea, vomiting ED Past Medical Hx - Past Medical History Hx Hypertension: Yes Hx Heart Attack/AMI: Yes Hx Congestive Heart Failure: No Hx Diabetes: No Hx Deep Vein Thrombosis: Yes Hx Asthma: Yes Hx COPD: No Additional medical history: Atrial Fibrillation - Surgical History Hx Coronary Stent: Yes Additional Surgical History: cardia stents - Social History Smoking Status: Never Smoker Substance Use Type: Alcohol, Marijuana - Medications Home Medications: Home Medications Medication Instructions Recorded Confirmed Last Taken Type Rosuvastatin (Nf) [Crestor] 10 mg PO QHS #30 tablet 04/21/14 06/16/19 Unknown Rx lisinopriL [Zestril TAB] 20 mg PO QDAY #30 tablet 04/21/14 06/16/19 Unknown Rx Apixaban [Eliquis] 5 mg PO Q12HR #60 tablet 06/18/19 Unknown Rx Aspirin EC [Halfprin EC] 81 mg PO QDAY #30 tablet.dr 06/18/19 Unknown Rx Famotidine [Pepcid] 20 mg PO BID #60 tablet 06/18/19 Unknown Rx Metoprolol [Lopressor TAB] 25 mg PO BID #30 tablet 06/18/19 Unknown Rx dilTIAZem CD [Cardizem CD] 180 mg PO QDAY #30 capsule 06/18/19 Unknown Rx ED Physical Exam - General Limitations: No Limitations General appearance: alert, in no apparent distress - Head Head exam: Present: atraumatic, normocephalic - Eye Eye exam: Present: normal appearance, EOMI - ENT ENT exam: Present: mucous membranes moist - Neck Neck exam: Present: normal inspection - Respiratory Respiratory exam: Present: normal lung sounds bilaterally. Absent: respiratory distress - Cardiovascular Cardiovascular Exam: Present: regular rate, normal rhythm - GI/Abdominal GI/Abdominal exam: Present: soft. Absent: distended, tenderness - Extremities Exam Extremities exam: Present: normal inspection - Neurological Exam Neurological exam: Present: alert, oriented X3 - Psychiatric Psychiatric exam: Present: normal affect, normal mood - Skin Skin exam: Present: warm, dry, intact, normal color ED Course Vital Signs 08/11/19 08/11/19 08/11/19 20:37 20:40 20:44 Temperature 98.3 F Pulse Rate 66 67 67 Respiratory 17 20 18 Rate Blood Pressure 160/90 O2 Sat by Pulse 97 96 99 Oximetry 08/11/19 08/11/19 08/11/19 21:00 21:01 22:12 Temperature Pulse Rate 62 70 Respiratory 21 Rate Blood Pressure 160/90 149/80 160/90 O2 Sat by Pulse Oximetry 08/11/19 23:00 Temperature Pulse Rate 65 Respiratory 14 Rate Blood Pressure 141/83 O2 Sat by Pulse 96 Oximetry ED Medical Decision Making - Lab Data Result diagrams: 08/11/19 21:59 08/11/19 21:59 - EKG Data EKG shows normal: axis, QRS complexes, ST-T waves Rate: normal - EKG Data Interpretation: no acute changes, other (Afib) - Radiology Data Radiology results: report reviewed, image reviewed - Medical Decision Making - hx afib, tachycardic at home into the 170s per pt - rate normal here in ED, no episodes of RVR - labs unremarkable, including troponin - EKG shows no ischemic changes - remainder of vitals are normal - will d/c home - advised outpt f/u w/ operational assistant, Dr Alvarado - return precautions given - Differential Diagnosis ACS, CHF, electrolyte abnormality Critical care attestation.: If time is entered above; I have spent that time in minutes in the direct care of this critically ill patient, excluding procedure time. ED Disposition Clinical Impression: Atrial fibrillation, Palpitations Disposition: DC-01 TO HOME OR SELFCARE Is pt being admited?: No Condition: Stable Instructions: Palpitations (ED) Referrals: DWAIN ALVARADO MD [Staff Physician] - 3-5 Days Time of Disposition: 23:08
[2019-08-11 22:19] LABS: Basophils % (Auto) 0.2 % (0.0-1.8); Eosinophils # (Auto) 0.2 K/mm3 (0.0-0.4); Eosinophils % (Auto) 2.4 % (0.0-4.3); Hematocrit 43.4 % (35.5-45.6); Hemoglobin 14.6 gm/dl (11.8-15.2); Lymphocytes # (Auto) 1.9 K/mm3 (1.2-5.4); Lymphocytes % (Auto) 26.4 % (13.4-35.0); Mean Corpuscular HGB Conc 34 % (32-34); Mean Corpuscular Volume 93 fl (84-94); Monocytes # (Auto) 0.7 K/mm3 (0.0-0.8); Monocytes % (Auto) 9.8 % (0.0-7.3); Platelet Count 331 K/mm3 (140-440); Red Blood Count 4.66 M/mm3 (3.65-5.03); Red Cell Distribution Width 14.2 % (13.2-15.2)
--- NOTE | 2019-08-11 22:26 | XRay Report ---
CHEST 1 VIEW INDICATION / CLINICAL INFORMATION: palpitations. COMPARISON: 08/17/2018 FINDINGS: SUPPORT DEVICES: None. HEART / MEDIASTINUM: No significant abnormality. LUNGS / PLEURA: No significant pulmonary or pleural abnormality.. No pneumothorax. ADDITIONAL FINDINGS: No significant additional findings. IMPRESSION: 1. No acute findings. Signer Name: Alejandro Zavala MD Signed: 08/11/2019 10:22 PM Workstation Name: [id number]
[2019-08-11 22:29] LABS: INR 1.02 (0.87-1.13)
[2019-08-11 22:30] LABS: Partial Thromboplastin Time 27.8 Sec. (24.2-36.6)
[2019-08-11 22:42] LABS: BUN/Creatinine Ratio 10; Blood Urea Nitrogen 10 mg/dL (9-20); Calcium 9.6 mg/dL (8.4-10.2); Hemolysis Index 20
[2019-08-12 00:50] VITALS: BP 141/83
== END 2019-08-12 00:28 | disposition home or self-care (01) ==
LOC: ED 18:39
DX: I48.91 Unspecified atrial fibrillation (principal); R00.2 Palpitations; I10 Essential (primary) hypertension; J45.909 Unspecified asthma, uncomplicated; F12.10 Cannabis abuse, uncomplicated; Z79.899 Other long term (current) drug therapy; Z98.890 Other specified postprocedural states; Z86.718 Personal history of other venous thrombosis and embolism
CPT/HCPCS: 36415; 71045; 80048; 84484; 85025; 85610; 85730; 93005; 93010

== ENCOUNTER 2019-08-26 17:56 | Emergency (ER) | payer SELFPAY ==
[2019-08-26 18:05] VITALS: BP 174/80
== END 2019-08-26 20:05 | disposition left against medical advice (07) ==
LOC: ED 17:56
DX: R07.89 Other chest pain (principal); Z53.21 Procedure and treatment not carried out due to patient leaving prior to being seen by health care provider
CPT/HCPCS: 93005; 93010

== ENCOUNTER 2020-05-19 08:07 | Emergency (ER) | payer MEDICARE, OTHER ==
[2020-05-19] MEDS ORDERED: ASPIRIN 325 MG TAB PO ONE (08:11)
--- NOTE | 2020-05-19 08:56 | XRay Report ---
CHEST 1 VIEW 05/19/2020 7:49 AM INDICATION / CLINICAL INFORMATION: Chest Pain. COMPARISON: 08/11/2019 FINDINGS: SUPPORT DEVICES: None. HEART / MEDIASTINUM: No significant abnormality. LUNGS / PLEURA: No significant pulmonary or pleural abnormality. No pneumothorax. ADDITIONAL FINDINGS: No significant additional findings. IMPRESSION: 1. No acute findings. Signer Name: Alejandro Zavala MD Signed: 05/19/2020 8:55 AM Workstation Name: [id number]
[2020-05-19 08:57] LABS: Basophils % (Auto) 0.4 % (0.0-1.8); Eosinophils # (Auto) 0.2 K/mm3 (0.0-0.4); Eosinophils % (Auto) 3.4 % (0.0-4.3); Hematocrit 41.7 % (35.5-45.6); Hemoglobin 14.2 gm/dl (11.8-15.2); Lymphocytes # (Auto) 1.5 K/mm3 (1.2-5.4); Lymphocytes % (Auto) 23.9 % (13.4-35.0); Mean Corpuscular HGB Conc 34 % (32-34); Mean Corpuscular Volume 91 fl (84-94); Monocytes # (Auto) 0.6 K/mm3 (0.0-0.8); Monocytes % (Auto) 9.5 % (0.0-7.3); Platelet Count 335 K/mm3 (140-440); Red Blood Count 4.56 M/mm3 (3.65-5.03); Red Cell Distribution Width 13.9 % (13.2-15.2)
[2020-05-19 09:16] LABS: INR 1.06 (0.87-1.13)
[2020-05-19 09:17] LABS: Partial Thromboplastin Time 26.4 Sec. (24.2-36.6)
[2020-05-19 09:25] LABS: Alanine Aminotransferase 26 units/L (7-56); Albumin 4.2 g/dL (3.9-5); BUN/Creatinine Ratio 10; Blood Urea Nitrogen 10 mg/dL (9-20); Calcium 9.2 mg/dL (8.4-10.2); Hemolysis Index 4
[2020-05-19 09:33] LABS: Bilirubin,Direct < 0.2 mg/dL (0-0.2)
[2020-05-19 09:35] LABS: Free T4 (Free Thyroxine) 1.29 ng/dL (0.76-1.46)
--- NOTE | 2020-05-19 10:58 | Emergency Department Report ---
ED General Adult HPI - General Chief complaint: Arrhythmia/Palpitations Stated complaint: A FIB Time Seen by Provider: 05/19/20 08:27 Source: patient Mode of arrival: Ambulatory Limitations: No Limitations - History of Present Illness Initial comments: This is a 69-year old man with a history of paroxysmal atrial fibrillation. He states that he is compliant with his metoprolol and diltiazem. He believes he was in normal sinus rhythm yesterday. This morning he developed a heart rate as high as 140. EMS was called. He was found to be in atrial fibrillation with a rapid ventricular response. However by the time of his arrival, his ventricular response was 80-90. Patient stated that he he checked his blood pressure and it was somewhat high this morning. He stated he had some discomfort in his chest but really did not describe chest pain pressure or tightness. He denies shortness of breath. He said no recent Covid exposure. He denies significant cough fever or chills. Patient admits that he does drink alcohol. He did drink some last night. He does not identify this as a specific precipitant of his atrial fibrillation. He states that he has not been on flecainide or amiodarone or any other specific antiarrhythmic agent in the past. He largely gets his care for his atrial fibrillation at the [facility] although he is also seen Dr. Alvarado here in this area. He is compliant with his Eliquis. He has no known history of thyroid disorder. Patient does have a history of previous myocardial infarction. He also has been here under similar circumstances earlier this year. It appears that he presented for chest pain once in the interim and there is no record found. -: Gradual Location: chest (Vague discomfort left chest) Severity scale (0 -10): 2 Consistency: now resolved Worsens with: none Associated Symptoms: other (Palpitations) Treatments Prior to Arrival: none - Related Data Home Medications Medication Instructions Recorded Confirmed Last Taken AtorvaSTATin [Lipitor] 40 mg PO QHS 05/19/20 05/19/20 05/18/20 Metoprolol [Lopressor TAB] 50 mg PO BID 05/19/20 05/19/20 05/19/20 Previous Rx's Medication Instructions Recorded Last Taken Type Apixaban [Eliquis] 5 mg PO Q12HR #60 tablet 06/18/19 05/19/20 Rx Aspirin EC [Halfprin EC] 81 mg PO QDAY #30 tablet. 06/18/19 05/19/20 Rx dilTIAZem CD [Cardizem CD] 180 mg PO QDAY #30 capsule 06/18/19 05/19/20 Rx Allergies Allergy/AdvReac Type Severity Reaction Status Date / Time No Known Allergies Allergy Verified 04/16/14 12:26 ED Review of Systems ROS: Stated complaint: A FIB Other details as noted in HPI Constitutional: denies: chills, fever Eyes: denies: eye pain, eye discharge, vision change ENT: denies: ear pain, throat pain Respiratory: denies: cough, shortness of breath, wheezing Cardiovascular: as per HPI, palpitations Endocrine: no symptoms reported Gastrointestinal: denies: abdominal pain, nausea, diarrhea Genitourinary: denies: urgency, dysuria Musculoskeletal: denies: back pain, joint swelling, arthralgia Skin: denies: rash, lesions Neurological: denies: headache, weakness, paresthesias Psychiatric: denies: anxiety, depression Hematological/Lymphatic: denies: easy bleeding, easy bruising ED Past Medical Hx - Past Medical History Previous Medical History?: Yes Hx Hypertension: Yes Hx Heart Attack/AMI: Yes Hx Congestive Heart Failure: No Hx Diabetes: No Hx Deep Vein Thrombosis: Yes Hx Asthma: Yes Hx COPD: No Additional medical history: Atrial Fibrillation - Surgical History Past Surgical History?: Yes Hx Coronary Stent: Yes Additional Surgical History: cardiac stents - Social History Smoking Status: Never Smoker Substance Use Type: Alcohol - Medications Home Medications: Home Medications Medication Instructions Recorded Confirmed Last Taken Type Apixaban [Eliquis] 5 mg PO Q12HR #60 tablet 06/18/19 05/19/20 05/19/20 Rx Aspirin EC [Halfprin EC] 81 mg PO QDAY #30 tablet. 06/18/19 05/19/20 05/19/20 Rx dilTIAZem CD [Cardizem CD] 180 mg PO QDAY #30 capsule 06/18/19 05/19/20 05/19/20 Rx AtorvaSTATin [Lipitor] 40 mg PO QHS 05/19/20 05/19/20 05/18/20 History Metoprolol [Lopressor TAB] 50 mg PO BID 05/19/20 05/19/20 05/19/20 History ED Physical Exam - General Limitations: No Limitations General appearance: alert, in no apparent distress - Head Head exam: Present: atraumatic, normocephalic - Eye Eye exam: Present: normal appearance. Absent: scleral icterus - ENT ENT exam: Present: mucous membranes moist - Neck Neck exam: Present: normal inspection - Respiratory Respiratory exam: Present: normal lung sounds bilaterally. Absent: respiratory distress - Cardiovascular Cardiovascular Exam: Present: regular rate, irregular rhythm. Absent: systolic murmur, diastolic murmur, rubs, gallop - GI/Abdominal GI/Abdominal exam: Present: soft, normal bowel sounds. Absent: distended, tenderness, guarding, rebound, rigid - Rectal Rectal exam: Present: deferred - Extremities Exam Extremities exam: Present: normal inspection - Back Exam Back exam: Present: normal inspection - Neurological Exam Neurological exam: Present: alert, oriented X3, CN II-XII intact. Absent: motor sensory deficit - Psychiatric Psychiatric exam: Present: normal affect, normal mood - Skin Skin exam: Present: warm, dry, intact, normal color. Absent: rash ED Course Vital Signs 05/19/20 05/19/20 05/19/20 08:22 08:30 09:00 Pulse Rate 83 86 103 H Respiratory 15 15 15 Rate Blood Pressure 125/74 120/69 O2 Sat by Pulse 99 99 Oximetry 05/19/20 05/19/20 09:30 10:00 Pulse Rate 80 74 Respiratory 14 14 Rate Blood Pressure 126/77 124/70 O2 Sat by Pulse 99 98 Oximetry - Reevaluation(s) Reevaluation #1: Patient remained asymptomatic here. He was observed on the monitor. He did not require any pharmaceutical intervention. He spontaneously converted to normal sinus rhythm. Twelve-lead EKG will be reviewed. I discussed with the patient possible association of atrial fibrillation with a lcohol use. I discussed the possibility of him being placed on a medication like flecainide and/or ablation procedure. This would be appropriate after consultation with his bulk system operator. He is appropriate for outpatient disposition. I am going to give him Dr. Alvarado's information. He can follow-up with the OR or local bulk system operator. 05/19/20 10:56 05/19/20 10:58 Reevaluation #2: Repeat EKG shows normal sinus rhythm at 71. All inferior zone. Nonspecific ST-T wave changes. 05/19/20 11:20 ED Medical Decision Making - Lab Data Result diagrams: 05/19/20 08:37 05/19/20 08:37 Laboratory Results - last 24 hr 05/19/20 05/19/20 05/19/20 08:37 08:37 08:39 WBC 6.1 RBC 4.56 Hgb 14.2 Hct 41.7 MCV 91 MCH 31 MCHC 34 RDW 13.9 Plt Count 335 Lymph % (Auto) 23.9 [place] % (Auto) 9.5 H Eos % (Auto) 3.4 Baso % (Auto) 0.4 Lymph # (Auto) 1.5 [place] # (Auto) 0.6 Eos # (Auto) 0.2 Baso # (Auto) 0.0 Seg Neutrophils % 62.8 Seg Neutrophils # 3.8 PT 13.9 INR 1.06 APTT 26.4 Sodium 138 Potassium 3.8 Chloride 102.7 Carbon Dioxide 26 Anion Gap 13 BUN 10 Creatinine 1.0 Estimated GFR > 60 BUN/Creatinine Ratio 10 Glucose 122 H Calcium 9.2 Magnesium 2.20 Total Bilirubin 0.50 Direct Bilirubin < 0.2 AST 24 ALT 26 Alkaline Phosphatase 83 Troponin T < 0.010 NT-Pro-B Natriuret Pep 19.43 Total Protein 7.8 Albumin 4.2 Albumin/Globulin Ratio 1.2 TSH Free T4 05/19/20 08:39 WBC RBC Hgb Hct MCV MCH MCHC RDW Plt Count Lymph % (Auto) [place] % (Auto) Eos % (Auto) Baso % (Auto) Lymph # (Auto) [place] # (Auto) Eos # (Auto) Baso # (Auto) Seg Neutrophils % Seg Neutrophils # PT INR APTT Sodium Potassium Chloride Carbon Dioxide Anion Gap BUN Creatinine Estimated GFR BUN/Creatinine Ratio Glucose Calcium Magnesium Total Bilirubin Direct Bilirubin AST ALT Alkaline Phosphatase Troponin T NT-Pro-B Natriuret Pep Total Protein Albumin Albumin/Globulin Ratio TSH 1.180 Free T4 1.29 - EKG Data -: EKG Interpreted by Me Rate: normal (Atrial fibrillation with controlled rate here in the emergency department prehospital EKG with a heart rate of 115) - EKG Data Interpretation: no acute changes, nonspecific ST-T wave abhi, other (Inferior Q's noted consistent with old zone) - Radiology Data Radiology results: report reviewed (No acute process), image reviewed Critical care attestation.: If time is entered above; I have spent that time in minutes in the direct care of this critically ill patient, excluding procedure time. ED Disposition Clinical Impression: Atrial fibrillation with RVR, Paroxysmal atrial fibrillation Disposition: TO HOME OR SELFCARE Is pt being admited?: No Does the pt Need Aspirin: No Condition: Stable Instructions: Atrial Fibrillation, [id number], Atrial Fibrillation, Nonspecific Chest Pain, Adult Additional Instructions: Return to the emergency department any acute change or problem. Further medication or therapeutic options should be discussed with your bulk system operator either at the OR or locally. Avoid alcohol consumption until discussed with bulk system operator. Referrals: PRIMARY CAREMD [Primary Care Provider] - 3-5 Days DWAIN ALVARADO MD [Staff Physician] - 2-3 Days
[2020-05-19 12:16] VITALS: BP 125/63
== END 2020-05-19 12:17 | disposition home or self-care (01) ==
LOC: ED 08:07
DX: I48.20 Chronic atrial fibrillation, unspecified (principal); I48.0 Paroxysmal atrial fibrillation; I10 Essential (primary) hypertension; I25.2 Old myocardial infarction; J45.909 Unspecified asthma, uncomplicated; Z98.890 Other specified postprocedural states; Z79.899 Other long term (current) drug therapy
CPT/HCPCS: 36415; 71045; 80048; 80076; 83735; 83880; 84439; 84443; 84484; 85025; 85610; 85730; 93005

== ENCOUNTER 2020-06-15 20:39 | Emergency (ER) | payer OTHER ==
[2020-06-15] MEDS ORDERED: ASPIRIN 325 MG TAB PO ONE (21:21)
[2020-06-15 21:48] LABS: Basophils % (Auto) 0.2 % (0.0-1.8); Eosinophils # (Auto) 0.1 K/mm3 (0.0-0.4); Eosinophils % (Auto) 1.1 % (0.0-4.3); Hematocrit 41.9 % (35.5-45.6); Hemoglobin 14.3 gm/dl (11.8-15.2); Lymphocytes # (Auto) 1.3 K/mm3 (1.2-5.4); Lymphocytes % (Auto) 16.9 % (13.4-35.0); Mean Corpuscular HGB Conc 34 % (32-34); Mean Corpuscular Volume 93 fl (84-94); Monocytes # (Auto) 0.7 K/mm3 (0.0-0.8); Monocytes % (Auto) 8.8 % (0.0-7.3); Platelet Count 343 K/mm3 (140-440); Red Blood Count 4.53 M/mm3 (3.65-5.03); Red Cell Distribution Width 14.3 % (13.2-15.2)
--- NOTE | 2020-06-15 21:52 | XRay Report ---
CHEST 2 VIEWS INDICATION / CLINICAL INFORMATION: Chest Pain. COMPARISON: 05/19/2020 FINDINGS: SUPPORT DEVICES: None. HEART / MEDIASTINUM: Stable. LUNGS / PLEURA: No significant pulmonary or pleural abnormality. No pneumothorax. ADDITIONAL FINDINGS: No significant additional findings. IMPRESSION: 1. No acute findings. Signer Name: Hai Montemayor MD Signed: 06/15/2020 9:47 PM Workstation Name: [id number]
[2020-06-15 22:01] LABS: BUN/Creatinine Ratio 9; Blood Urea Nitrogen 8 mg/dL (9-20); Calcium 9.5 mg/dL (8.4-10.2); Hemolysis Index 9
== END 2020-06-16 00:07 | disposition left against medical advice (07) ==
LOC: ED 20:39
DX: R06.02 Shortness of breath (principal); Z53.21 Procedure and treatment not carried out due to patient leaving prior to being seen by health care provider
CPT/HCPCS: 36415; 71046; 80048; 84484; 85025; 93005

== ENCOUNTER 2021-12-22 13:10 | Emergency (ER) | payer MEDICARE, OTHER ==
[2021-12-22] MEDS ORDERED: HEPARIN 10,000 UNITS/10 ML VIAL IV PRN (13:29)
--- NOTE | 2021-12-22 13:42 | Emergency Department Report ---
ED Chest Pain HPI - General Chief Complaint: Arrhythmia/Palpitations Stated Complaint: CHEST PAIN Time Seen by Provider: 12/22/21 13:31 Source: EMS Mode of arrival: Stretcher Limitations: No Limitations - History of Present Illness Initial Comments: This is a 71-year-old -[place] male who presents to the emergency department via EMS from home with complaint of a fast heart rate. The patient has a history of paroxysmal atrial fibrillation anticoagulated on Eliquis, hypertension, hyperlipidemia, coronary artery disease. Earlier in the day he began feeling palpitations like his heart was racing, had some shortness of breath, and then checked his heart rate and found it to be elevated at about 170. Other than taking his normal home medications he did not take anything else for treatment of his symptoms. At the time of my examination he is asymptomatic. He follows with the [facility] for primary care and cardiology. No recent travel or sick contacts at home. Severity scale (0 -10): 0 - Related Data Home Medications Medication Instructions Recorded Confirmed Last Taken AtorvaSTATin [Lipitor] 40 mg PO QHS 05/19/20 05/19/20 05/18/20 Metoprolol [Lopressor TAB] 50 mg PO BID 05/19/20 05/19/20 05/19/20 Previous Rx's Medication Instructions Recorded Last Taken Type Apixaban [Eliquis] 5 mg PO Q12HR #60 tablet 06/18/19 05/19/20 Rx Aspirin EC [Halfprin EC] 81 mg PO QDAY #30 tablet. 06/18/19 05/19/20 Rx dilTIAZem CD [Cardizem CD] 180 mg PO QDAY #30 capsule 06/18/19 05/19/20 Rx Allergies Allergy/AdvReac Type Severity Reaction Status Date / Time No Known Allergies Allergy Verified 12/22/21 13:26 Heart Score - HEART Score History: Slightly suspicious EKG: Normal Age: > 65 Risk factors: > 3 risk factors or hx of atherosclerotic disease Troponin: < normal limit HEART Score: 4 - EKG Read Time Time EKG Completed: 00:00 EKG Read Time: 00:00 - Critical Actions Critical Actions: 4-6 pts:12-16.6% risk of adverse cardiac event. Should be admitted ED Review of Systems ROS: Stated complaint: CHEST PAIN Other details as noted in HPI Comment: All other systems reviewed and negative Constitutional: denies: chills, fever Eyes: denies: eye pain, vision change ENT: denies: ear pain, throat pain Respiratory: shortness of breath (Resolved). denies: cough Cardiovascular: palpitations (Resolved). denies: chest pain Gastrointestinal: denies: abdominal pain, vomiting Genitourinary: denies: dysuria, discharge Musculoskeletal: denies: back pain, arthralgia Skin: denies: rash, lesions Neurological: denies: headache, weakness ED Past Medical Hx - Past Medical History Previous Medical History?: Yes Hx Hypertension: Yes Hx Heart Attack/AMI: Yes Hx Congestive Heart Failure: No Hx Diabetes: No Hx Deep Vein Thrombosis: Yes Hx Asthma: Yes Hx COPD: No Additional medical history: Atrial Fibrillation - Surgical History Hx Coronary Stent: Yes Additional Surgical History: cardiac stents - Social History Smoking Status: Never Smoker Substance Use Type: None - Medications Home Medications: Home Medications Medication Instructions Recorded Confirmed Last Taken Type Apixaban [Eliquis] 5 mg PO Q12HR #60 tablet 06/18/19 05/19/20 05/19/20 Rx Aspirin EC [Halfprin EC] 81 mg PO QDAY #30 tablet. 06/18/19 05/19/20 05/19/20 Rx dilTIAZem CD [Cardizem CD] 180 mg PO QDAY #30 capsule 06/18/19 05/19/20 05/19/20 Rx AtorvaSTATin [Lipitor] 40 mg PO QHS 05/19/20 05/19/20 05/18/20 History Metoprolol [Lopressor TAB] 50 mg PO BID 05/19/20 05/19/20 05/19/20 History ED Physical Exam - General Limitations: No Limitations - Other Other exam information: GENERAL: The patient is well-developed well-nourished. HENT: Normocephalic. Atraumatic. Patient has moist mucous membranes. EYES: Extraocular motions are intact. NECK: Supple. Trachea is midline. CHEST/LUNGS: Clear to auscultation. There is no respiratory distress noted. HEART/CARDIOVASCULAR: Regular. There is no tachycardia. There is no murmur. ABDOMEN: Abdomen is soft, nontender. Patient has normal bowel sounds. There is no abdominal distention. SKIN: Skin is warm and dry. NEURO: The patient is awake, alert, and oriented. The patient is cooperative. The patient has no focal neurologic deficits. Normal speech. MUSCULOSKELETAL: There is no tenderness or deformity. There is no limitation range of motion. ED Course Vital Signs 12/22/21 12/22/21 12/22/21 13:22 13:48 16:22 Temperature 97.9 F Pulse Rate 102 H 80 61 Respiratory 16 18 18 Rate Blood Pressure 152/77 139/78 112/60 [Left] O2 Sat by Pulse 99 99 99 Oximetry SHANNA score - Shanna Score Age > 65: (1) Yes Aspirin use within the Past 7 Days: (1) Yes 3 or more CAD Risk Factors: (1) Yes 2 or more Angina events in past 24 hrs: (0) No Known CAD with more than 50% Stenosis: (1) Yes Elevated Cardiac Markers: (0) No ST Deviation Greater than 0.5mm: (0) No SHANNA Score: 4 ED Medical Decision Making - Lab Data Result diagrams: 12/22/21 13:58 12/22/21 13:58 Lab Results 12/22/21 12/22/21 12/22/21 Range/Units 13:58 13:58 13:58 WBC 5.9 (4.5-11.0) K/mm3 RBC 4.66 (3.65-5.03) M/mm3 Hgb 14.3 (11.8-15.2) gm/dl Hct 42.9 (35.5-45.6) % MCV 92 (84-94) fl MCH 31 (28-32) pg MCHC 33 (32-34) % RDW 13.8 (13.2-15.2) % Plt Count 250 (140-440) K/mm3 Lymph % (Auto) 15.2 (13.4-35.0) % [place] % (Auto) 10.4 H (0.0-7.3) % Eos % (Auto) 0.9 (0.0-4.3) % Baso % (Auto) 0.2 (0.0-1.8) % Lymph # (Auto) 0.9 L (1.2-5.4) K/mm3 [place] # (Auto) 0.6 (0.0-0.8) K/mm3 Eos # (Auto) 0.1 (0.0-0.4) K/mm3 Baso # (Auto) 0.0 (0.0-0.1) K/mm3 Seg Neutrophils % 73.3 H (40.0-70.0) % Seg Neutrophils # 4.3 (1.8-7.7) K/mm3 PT 13.8 (12.2-14.9) Sec. INR 0.96 (0.87-1.13) APTT 25.4 (24.2-36.6) Sec. Sodium 141 (137-145) mmol/L Potassium 3.8 (3.6-5.0) mmol/L Chloride 104.0 (98-107) mmol/L Carbon Dioxide 26 (22-30) mmol/L Anion Gap 15 mmol/L BUN 10 (9-20) mg/dL Creatinine 1.0 (0.8-1.3) mg/dL Estimated GFR > 60 ml/min BUN/Creatinine Ratio 10 % Glucose 94 (75-100) mg/dL Calcium 9.5 (8.4-10.2) mg/dL Total Bilirubin 0.50 (0.1-1.2) mg/dL AST 31 (5-40) units/L ALT 35 (7-56) units/L Alkaline Phosphatase 79 (35-129) units/L Troponin T < 0.010 (0.00-0.029) ng/mL Total Protein 7.4 (6.3-8.2) g/dL Albumin 4.3 (3.9-5) g/dL Albumin/Globulin Ratio 1.4 % TSH (0.270-4.200) mlU/mL Free T4 (0.76-1.46) ng/dL 12/22/21 12/22/21 Range/Units 13:58 15:58 WBC (4.5-11.0) K/mm3 RBC (3.65-5.03) M/mm3 Hgb (11.8-15.2) gm/dl Hct (35.5-45.6) % MCV (84-94) fl MCH (28-32) pg MCHC (32-34) % RDW (13.2-15.2) % Plt Count (140-440) K/mm3 Lymph % (Auto) (13.4-35.0) % [place] % (Auto) (0.0-7.3) % Eos % (Auto) (0.0-4.3) % Baso % (Auto) (0.0-1.8) % Lymph # (Auto) (1.2-5.4) K/mm3 [place] # (Auto) (0.0-0.8) K/mm3 Eos # (Auto) (0.0-0.4) K/mm3 Baso # (Auto) (0.0-0.1) K/mm3 Seg Neutrophils % (40.0-70.0) % Seg Neutrophils # (1.8-7.7) K/mm3 PT (12.2-14.9) Sec. INR (0.87-1.13) APTT (24.2-36.6) Sec. Sodium (137-145) mmol/L Potassium (3.6-5.0) mmol/L Chloride (98-107) mmol/L Carbon Dioxide (22-30) mmol/L Anion Gap mmol/L BUN (9-20) mg/dL Creatinine (0.8-1.3) mg/dL Estimated GFR ml/min BUN/Creatinine Ratio % Glucose (75-100) mg/dL Calcium (8.4-10.2) mg/dL Total Bilirubin (0.1-1.2) mg/dL AST (5-40) units/L ALT (7-56) units/L Alkaline Phosphatase (35-129) units/L Troponin T < 0.010 (0.00-0.029) ng/mL Total Protein (6.3-8.2) g/dL Albumin (3.9-5) g/dL Albumin/Globulin Ratio % TSH 0.926 (0.270-4.200) mlU/mL Free T4 1.20 (0.76-1.46) ng/dL - EKG Data -: EKG Interpreted by Me EKG shows normal: sinus rhythm, axis, intervals, QRS complexes (Q waves to the inferior leads), ST-T waves Rate: normal - EKG Data When compared to previous EKG there are: no significant change Interpretation: unchanged when compared t (06/15/20) - Radiology Data Radiology results: image reviewed interpreted by me: Chest x-ray does not show any acute process. There are no pleural effusions, obvious pneumonia and there is no pneumothorax. - Medical Decision Making This patient presents to the emergency department with a complaint of some palpitations in terms of feeling like his heart rate was elevated, and some intermittent shortness of breath at that time. He checked his heart rate and he says it was at about 170 bpm. He has a history of paroxysmal atrial fibrillation and I am guessing that he was in A. fib with RVR. However, at the time of my initial examination, the patient has a regular rhythm and is rate controlled. EKG confirms this with sinus rhythm without morphology consistent with ST elevation myocardial infarction or any arrhythmia. Chest x-ray does not show any pneumonia, pleural effusions, pneumothorax, widened mediastinum, or any other acute process. The patient's labs have been unremarkable including CBC, metabolic panel, negative troponins x2, and normal thyroid function. The patient is anticoagulated and says he is compliant with his medication and therefore he appears low risk for pulmonary embolism. The patient has been asymptomatic since arriving to the emergency department and never complained of any chest discomfort. Therefore, despite having a moderate heart and SHANNA score, the patient appears safe for discharge home at this time. He has been given outpatient referral for cardiology in case he would like to see someone near [facility], otherwise he says he has good outpatient follow-up through the [facility]. Critical Care Time: No Critical care attestation.: If time is entered above; I have spent that time in minutes in the direct care of this critically ill patient, excluding procedure time. ED Disposition Clinical Impression: History of atrial fibrillation, Palpitations Disposition: 01 HOME / SELF CARE / HOMELESS Is pt being admited?: No Condition: Stable Instructions: Palpitations Additional Instructions: Please follow-up with your primary care physician and dumpcart driver at the [facility]. Just in case, I am giving you a referral for a local dumpcart driver that you have seen previously here, Dr. Alvarado. Return to the emergency department with any worsening of your symptoms or with any acute distress. Referrals: DWAIN ALVARADO MD [Staff Physician] - 3-5 Days Time of Disposition: 17:33
[2021-12-22 14:13] LABS: Basophils % (Auto) 0.2 % (0.0-1.8); Eosinophils # (Auto) 0.1 K/mm3 (0.0-0.4); Eosinophils % (Auto) 0.9 % (0.0-4.3); Hematocrit 42.9 % (35.5-45.6); Hemoglobin 14.3 gm/dl (11.8-15.2); Lymphocytes # (Auto) 0.9 K/mm3 (1.2-5.4); Lymphocytes % (Auto) 15.2 % (13.4-35.0); Mean Corpuscular HGB Conc 33 % (32-34); Mean Corpuscular Volume 92 fl (84-94); Monocytes # (Auto) 0.6 K/mm3 (0.0-0.8); Monocytes % (Auto) 10.4 % (0.0-7.3); Platelet Count 250 K/mm3 (140-440); Red Blood Count 4.66 M/mm3 (3.65-5.03); Red Cell Distribution Width 13.8 % (13.2-15.2)
--- NOTE | 2021-12-22 14:16 | XRay Report ---
CHEST 1 VIEW 12/22/2021 1:09 PM INDICATION / CLINICAL INFORMATION: CP, palpitations. COMPARISON: 06/15/2020 FINDINGS: SUPPORT DEVICES: None. HEART / MEDIASTINUM: No significant abnormality. LUNGS / PLEURA: No significant pulmonary or pleural abnormality. No pneumothorax. ADDITIONAL FINDINGS: No significant additional findings. IMPRESSION: 1. No acute findings. Signer Name: Tushar Sher MD Signed: 12/22/2021 2:11 PM Workstation Name: [id number]
[2021-12-22 14:28] LABS: INR 0.96 (0.87-1.13)
[2021-12-22 14:29] LABS: Partial Thromboplastin Time 25.4 Sec. (24.2-36.6)
[2021-12-22 14:32] LABS: Alanine Aminotransferase 35 units/L (7-56); Albumin 4.3 g/dL (3.9-5); BUN/Creatinine Ratio 10; Blood Urea Nitrogen 10 mg/dL (9-20); Calcium 9.5 mg/dL (8.4-10.2); Hemolysis Index 16
[2021-12-22 15:03] LABS: Free T4 (Free Thyroxine) 1.2 ng/dL (0.76-1.46)
[2021-12-22 18:29] VITALS: BP 132/65
--- NOTE | 2021-12-23 13:49 | Electrocardiograph Report ---
[facility] Test Date: 2021-12-22 Test Time: 13:56:18 Pat Name: TARUN ROMEO Department: Room: Gender: M Cost Recovery Technician: 000 : 1950 Requested By: NEYMAR RAYO Order Number: [id number] Reading MD: Maikol Alvarado Measurements Intervals [place] Rate: 94 P: 45 ID: [id number] QRS: 11 QRSD: 76 T: -31 QT: 350 QTc: 439 Interpretive Statements Sinus rhythm Probable left atrial enlargement Probable inferior infarct, old No previous ECG available for comparison Electronically Signed On 12-23-2021 13:49:44 EDT by Maikol Alvarado
== END 2021-12-22 18:30 | disposition home or self-care (01) ==
LOC: ED 13:10
DX: R00.2 Palpitations (principal); I48.91 Unspecified atrial fibrillation; I10 Essential (primary) hypertension; I21.9 Acute myocardial infarction, unspecified; J45.909 Unspecified asthma, uncomplicated; Z86.718 Personal history of other venous thrombosis and embolism; Z90.49 Acquired absence of other specified parts of digestive tract; Z79.899 Other long term (current) drug therapy
CPT/HCPCS: 36415; 71045; 80053; 84439; 84443; 84484; 85025; 85610; 85730; 93005; 99284